=== PATIENT | female | born 1945 | race Native Hawaiian/Other Pacific Islander ===

== ENCOUNTER 2018-02-12 11:39 | Outpatient (CLI) | payer OTHER | END 2018-02-12 21:24 | disposition home or self-care (01) | LOC: US 11:39 | DX: M79.661 Pain in right lower leg (principal); M79.89 Other specified soft tissue disorders ==

== ENCOUNTER 2019-01-14 14:22 | Outpatient (CLI) | payer OTHER ==
[~2019-01-14] VITALS: Ht 157.5 cm; Wt 55.8 kg
[2019-01-14 14:40] VITALS: BP 110/59; TEMP 98
== END 2019-01-14 19:42 | disposition home or self-care (01) ==
LOC: INF 14:22
DX: M81.0 Age-related osteoporosis without current pathological fracture (principal)
CPT/HCPCS: 36415; 82310; 96372; J0897

== ENCOUNTER 2019-01-17 10:38 | Outpatient (CLI) | payer OTHER | END 2019-01-17 22:25 | disposition home or self-care (01) | LOC: RAD 10:38 → MAMMO 11:30 → RAD 22:25 | DX: M81.0 Age-related osteoporosis without current pathological fracture (principal); Z12.31 Encounter for screening mammogram for malignant neoplasm of breast; N64.59 Other signs and symptoms in breast ==

== ENCOUNTER 2019-01-21 11:01 | Outpatient (CLI) | payer OTHER | END 2019-01-21 23:46 | disposition home or self-care (01) | LOC: US 11:01 | DX: M79.605 Pain in left leg (principal) ==

== ENCOUNTER 2019-07-16 13:31 | Outpatient (CLI) | payer OTHER ==
[~2019-07-16] VITALS: Ht 157.5 cm; Wt 55.8 kg
[2019-07-16 13:35] VITALS: BP 116/84; TEMP 98.1
== END 2019-07-16 14:45 | disposition home or self-care (01) ==
LOC: INF 13:31
DX: M81.0 Age-related osteoporosis without current pathological fracture (principal)
CPT/HCPCS: 36415; 82310; 96372; J0897

== ENCOUNTER 2020-04-19 12:21 | Outpatient (CLI) | payer OTHER ==
[~2020-04-19] VITALS: Ht 157.5 cm; Wt 55.8 kg
[2020-04-19 12:50] VITALS: BP 127/52; TEMP 98.7
== END 2020-04-19 14:00 | disposition home or self-care (01) ==
LOC: INF 12:21
PROVIDERS: ATTEND Internal Medicine Endocrinology, Diabetes & Metabolism
DX: M81.0 Age-related osteoporosis without current pathological fracture (principal)
CPT/HCPCS: 36415; 82310; 96372; J0897

== ENCOUNTER 2020-11-08 12:47 | Outpatient (CLI) | payer OTHER ==
[~2020-11-08] VITALS: Ht 157.5 cm; Wt 55.8 kg
== END 2020-11-08 19:47 | disposition home or self-care (01) ==
LOC: INF 12:47
PROVIDERS: ATTEND Internal Medicine
DX: M81.0 Age-related osteoporosis without current pathological fracture (principal)
CPT/HCPCS: 36415; 82310; 96372; J0897

== ENCOUNTER 2021-07-05 11:59 | Outpatient (CLI) | payer OTHER ==
[~2021-07-05] VITALS: Ht 157.5 cm; Wt 51.7 kg
== END 2021-07-05 19:03 | disposition home or self-care (01) ==
LOC: INF 11:59
PROVIDERS: ATTEND Internal Medicine
DX: M85.80 Other specified disorders of bone density and structure, unspecified site (principal)
CPT/HCPCS: 36415; 82310; 96372; J0897

== ENCOUNTER 2021-11-07 15:00 | Outpatient (CLI) | payer OTHER | END 2021-11-07 18:52 | disposition home or self-care (01) | LOC: RAD 15:00 | PROVIDERS: ATTEND Internal Medicine | DX: J44.9 Chronic obstructive pulmonary disease, unspecified (principal) ==

== ENCOUNTER 2022-11-02 12:48 | Outpatient (CLI) | payer OTHER | END 2022-11-02 19:24 | disposition home or self-care (01) | LOC: CT 12:48 | PROVIDERS: ATTEND Orthopaedic Surgery | DX: M79.672 Pain in left foot (principal); M19.072 Primary osteoarthritis, left ankle and foot; S93.692A Other sprain of left foot, initial encounter; Y92.89 Other specified places as the place of occurrence of the external cause ==